=== PATIENT | male | born 1975 | race Caucasian/White ===

== ENCOUNTER 2017-03-06 15:10 | Emergency (ER) | payer SELFPAY ==
[~2017-03-06] VITALS: Ht 193 cm; Wt 99.8 kg
[2017-03-06] MEDS ORDERED: VISTARIL25 M2 PO (16:07)
== END 2017-03-06 16:20 | disposition home or self-care (01) ==
LOC: ED 15:10
DX: F41.9 Anxiety disorder, unspecified (principal); F17.200 Nicotine dependence, unspecified, uncomplicated